=== PATIENT | male | born 2000 | race Hispanic/Latino ===

== ENCOUNTER 2024-05-06 13:05 | Emergency (ER) | payer MEDICARE, OTHER ==
[~2024-05-06] VITALS: Ht 167.6 cm; Wt 81.6 kg
[2024-05-06 14:04] VITALS: BP 119/52; PULSE 74; RESP 20; O2SAT 98
== END 2024-05-06 14:08 | disposition home or self-care (01) ==
LOC: EDH 13:05
DX: M67.432 Ganglion, left wrist (principal)
CPT/HCPCS: 73110